=== PATIENT | female | born 1945 | race Caucasian/White ===

== ENCOUNTER 2018-08-17 14:17 | Outpatient (CLI) | payer MEDICARE, BC ==
[2018-08-17 14:55] LABS: Hemoglobin 13.1 g/dL (12.0-16.0); Mean Corpuscular HGB CONC 32.6 g/dL (32.0-36.0); Mean Corpuscular Hemoglobin 28.6 pg (27.0-31.0); Mean Corpuscular Volume 87.9 fL (78.0-98.0); Mean Platelet Volume 6.6 fL (7.4-10.4); Platelet Count 322 thou/uL (130-400); RBC Distribution Width 12.2 % (11.5-14.5); Red Blood Cell (RBC) Count 4.57 mill/uL (4.20-5.40); White Blood Cell (WBC) Count 8.2 thou/uL (4.8-10.8)
[2018-08-17 15:02] LABS: INR-International Normal Ratio 0.9; PTT 23.9 SEC (22.9-36.1); Prothrombin Time 12.1 SEC (12.0-14.7)
[2018-08-17 15:14] LABS: Anion Gap 10 mmol/L (10-20); BUN (Urea Nitrogen) 11 mg/dL (9.8-20.1); Calc. Creatinine Clearance 0 mL/min (70-130); Calcium 9.8 mg/dL (7.8-10.44); Carbon Dioxide 31 mmol/L (23-31); Chloride 102 mmol/L (98-107); Estimated GFR-MDRD 71; Glucose 135 mg/dL (83-110); Potassium 4.1 mmol/L (3.5-5.1); Sodium 139 mmol/L (136-145)
--- NOTE | 2018-08-17 17:01 | EKG ---
Test Reason : Blood Pressure : / mmHG Vent. Rate : 078 BPM Atrial Rate : 078 BPM P-R Int : 142 ms QRS Dur : 130 ms QT Int : 432 ms P-R-T Axes : 044 221 052 degrees QTc Int : 492 ms Normal sinus rhythm Right bundle branch block Abnormal ECG No previous ECGs available Confirmed by DR. Liban TOVAR ([id number]) on 08/17/2018 5:01:17 PM Referred By: EDY Confirmed By:DR. Liban TOVAR
== END 2018-08-17 14:18 | disposition home or self-care (01) ==
LOC: LABBT 14:17
PROVIDERS: ATTEND Neurological Surgery
DX: Z01.818 Encounter for other preprocedural examination (principal); M43.16 Spondylolisthesis, lumbar region
CPT/HCPCS: 80048; 85027; 85610; 85730; 93005; 93010

== ENCOUNTER 2018-08-18 05:36 | Inpatient (IN) | payer MEDICARE, BC ==
--- NOTE | 2018-08-12 12:21 | HP ---
HISTORY OF PRESENT ILLNESS: This is a 73-year-old female who reports to our office for evaluation of left low back and leg pain, worse over the last 2 years. The patient states that distribution of th e pain runs along the left L5 dermatome. It is hard to get out of bed in the morning and she feels w eak. She does feel more comfortable when she has had her left leg flexed as it is very hard for her to roll over in bed at night and it "just hurts." She states that she has tried injections that help ed for some time, but the relief does not last very long. Patient denies any physical therapy and byers s been taking tramadol with some benefit. Patient has weakness in EHL on the left. REVIEW OF SYSTEMS: A 10-point review of systems has been completed and is negative otherwise stated above in the HPI. PAST MEDICAL HISTORY: Arthritis, high cholesterol, chronic pain, and diabetes. PAST SURGICAL HISTORY: Left rotator cuff repair, cholecystectomy. SOCIAL HISTORY: The patient is a nonsmoker, does not drink alcohol or use any other illicit drugs. MEDICATIONS: Gabapentin, Lantus, losartan, Excedrin Extra Strength, citalopram. ALLERGIES: No known drug allergies. PHYSICAL EXAMINATION: CONSTITUTIONAL: Well-appearing, well-nourished, alert. NEUROLOGICAL: Mental status: Oriented to time, place and person. Normal attention span and concent ration. Speech is spontaneous and fluent. Comprehension is intact. Content appropriate. Normal fu nd of knowledge. Cranial nerves: Pupils equal, round, reactive to light. Extraocular movements int act. Hearing is intact. Motor muscle strength is normal in lower extremities. Muscle tone and bulk normal in lower extremities, 5/5 bilateral strength in IP, KE, KF, DF, PF, 4/5 strength in left EHL. L5 radiculopathy on the left. Positive single leg raise on the left. Rotation of bilateral hips n ormal. Nontender to palpation. Deep tendon reflexes 2+ patellar, 2+ ankle bilaterally. Sensory int act to light touch. Gait and station: Sit to stand is slow, stiff gait. RESPIRATIONS: Normal work of breathing in room air. SKIN: No rashes, lesions on exposed skin. PSYCHIATRIC: Normal mood and affect. IMAGING: MRI of the lumbar spine shows significant spondylolisthesis at the last two segments of her spine, L4-L5, L5-S1 shows significant slip and stenosis. ASSESSMENT AND PLAN: Two level spondylolisthesis resulting in severe stenosis with neurogenic claudi cation. PLAN: Dr. Medina has offered a decompression and fusion. We have discussed the risks, benefits, and alternatives, and expected results from surgery. The risks have been discussed included, but wer e not limited to bleeding, infection, CSF leak, nerve damage, screw misplacement, cauda equina injury , paralysis, incontinence, wheelchair dependence, major blood vessel injury, cardiopulmonary complica tions of anesthesia, hypotension complications including blindness and spinal cord dysfunction or paul th. assembly technician risks include the need for further surgery and instrumentation failure. The patient s tates that she understands the risks and is willing to proceed with surgery.
[2018-08-18] MEDS ORDERED: Bupivacaine HCl 0.5%/Epinephrine 1:200,000/PF 30 ml Vial ONE (06:17)
[2018-08-18] MEDS ORDERED: Thrombin 5000 UNITS/5 ML VIAL ONE (06:17)
[2018-08-18] MEDS ORDERED: Sodium Chloride 0.9% 20 ML ONE (06:17)
[2018-08-18] MEDS ORDERED: CEFAZOLIN 2 GM/50 ML BAG ONE (06:22)
[2018-08-18] MEDS ORDERED: Midazolam HCl 2 mg/2 ml Vial ONE (06:33)
[2018-08-18] MEDS ORDERED: Fentanyl 250 MCG/5 ML VIAL ONE (06:34)
[2018-08-18] MEDS ORDERED: Albumin 5% 500 ML ONE (11:02)
[2018-08-18] MEDS ORDERED: Promethazine 25 MG TAB PO PRN (12:00)
[2018-08-18] MEDS ORDERED: Acetaminophen 650 MG Suppository PR PRN (12:00)
[2018-08-18] MEDS ORDERED: Acetaminophen/Codeine 30-300mg Tablet PO PRN ×2 (12:00)
[2018-08-18] MEDS ORDERED: Mag-Al 1200 mg/1200 mg/30 ML UDCUP PO PRN (12:00)
[2018-08-18] MEDS ORDERED: diphenhydrAMINE 50 MG/ML VIAL IVP PRN (12:00)
[2018-08-18] MEDS ORDERED: Ondansetron PF 4 MG/2 ML Vial IVP PRN (12:00)
[2018-08-18] MEDS ORDERED: diphenhydrAMINE 25 MG CAP PO PRN (12:00)
[2018-08-18] MEDS ORDERED: Promethazine HCl 25 MG/ML VIAL IM PRN (12:00)
[2018-08-18] MEDS ORDERED: Milk Of Magnesia 30 ML UDCUP PO PRN (12:00)
[2018-08-18] MEDS ORDERED: Non-Formulary Item 1 EACH (Ondansetron Hcl 4 MG) PO PRN (12:04)
[2018-08-18] MEDS ORDERED: Fentanyl 100 MCG/2 ML VIAL ONE ×3 (12:22→13:41)
--- NOTE | 2018-08-18 12:34 | OP ---
DATE OF PROCEDURE: 08/18/2018 SURGEON: Anshul Medina M.D. RIGHT OF WAY BUYER: Amber Baez PA-C. PREOPERATIVE INDICATION: Treat pain, prevent neurological deterioration. PREOPERATIVE DIAGNOSES: Lumbar spondylolisthesis at L4-L5 and L5-L6 (transitional segment) with spin al stenosis and lateral recess stenosis and neurogenic claudication. POSTOPERATIVE DIAGNOSES: Lumbar spondylolisthesis at L4-L5 and L5-L6 (transitional segment) with spi nal stenosis and lateral recess stenosis and neurogenic claudication. OPERATIVE PROCEDURE: Decompressive laminectomy, medial facetectomy and foraminotomy at L4-L5 and L5- L6; and a transforaminal lumbar interbody arthrodesis L4-L5, L5-L6; placement of intervertebral biome chanical device L4-L5, L5-L6; pedicle screw and lambert instrumentation L4, L5, L6; posterolateral arthro desis, L4, L5, L6; local morselized autograft, morselized Allograft (transitional segment L6 or S0). PREOPERATIVE MEDICATION: Ancef 2 grams IV. DRAIN NUMBER: Zero. DRAIN TYPE: None. OPERATIVE DICTATION: The patient was brought to the operating room. General endotracheal anesthesia was induced. The patient was positioned prone on the Mal frame with appropriate padding for the chest and hips. A lateral fluoro radiograph was used to plan incision. The lumbar skin was sterile ly prepped and draped. We opened with a 10 blade knife and controlled bleeding with bipolar and mono polar cautery. We used monopolar cautery to dissect through subcutaneous tissues to the thoracodorsa l fascia. We incised the fascia in the midline and we reflected the paraspinal muscles off the spino us process and lamina of L4, L5, and L6 (there was a transitional L6 segment or could be called S0). A lateral fluoro radiograph confirmed the levels upon which we were operating. We then carried our dissection over the facet joints at L3-4, L4-5 and L5-L6 to identify the transverse processes at L4-L 5 and L6 bilaterally. We irrigated with bacitracin irrigation. We then used an Adson rongeur and Ke rrison rongeurs to fashion a laminectomy. We removed the entire lamina of L4 and L5 and the superior portion of the lamina of L6. We widened our laminectomy defect by performing medial facetectomies a t L4-L5 and L5-L6. We decompressed the lateral recesses. We performed foraminotomies over the exiti ng nerve roots. At the completion of our decompression, there was no impingement of any neural eleme nt in the canal or out the foramen. We then turned our attention to arthrodesis at the 2 levels with spondylolisthesis was present. We performed a left-sided facetectomy at L4-5 and L5-6 and with the facets removed, we entered the di sk space through the foramen at both of the interspaces. We incised the disk space and removed disk contents using curettes and rongeurs. We bone the rasp into the field and prepared the endplates for grafting. We measured the height of each interspace to 10 mm. Two separate 10 mm PEEK intervertebr al grafts were brought into the field. Our laminectomy bone was cleaned of all its soft tissue attac hments and the bone that we removed was morcellized into demineralized bone matrix to form our fusion substrate. The substrate was packed into our PEEK intervertebral grafts and those were advanced int o the interspaces under radiographic guidance to the appropriate depth. We turned our attention to p edicle screw instrumentation. Using bony anatomic landmarks, palpation of the medial portion of the pedicles, and a lateral fluoro radiograph as a guide, we chose entry points for pedicle screws. We drilled these with a high-speed drill and then used the bone awl to advance through the pedicles into the vertebral bodies. We tappe d each trajectory and then probed it. We found them completely encased in bone. We placed 6.5 mm di ameter screws in the pedicles at L4, L5, and L6 bilaterally. A 360 degree image set was generated wi th our isocentric C-arm. This confirmed adequate position of our instrumentation. We irrigated copi ously with bacitracin irrigation. We decorticated the bone, the transverse processes of L4, L5 and L 6 bilaterally and over the decorticated bone we left more demineralized bone matrix and morselized au tograft as our posterolateral fusion substrate. We then brought rods into the field. We bent the ro ds to engage the pedicle screw heads. We tightened caps over the rods. Using a cgghfk-suaydit-itlql e mechanism, we ensured adequate tightness of the caps just before tightening performed. We added a compressive force across the interspace to keep the interbody graft in place. The osylee-wbtswzi-oig que mechanism ensured adequate tightness of the caps. We then irrigated the center of the wound with bacitracin irrigation. We treated the wound with vancomycin powder. We closed the wound in anatomi c layers. We applied a sterile dressing. This was a clean case and no contamination.
[2018-08-18] MEDS ORDERED: Zolpidem Tartrate 5 MG TAB PO PRN (13:34)
[2018-08-18] MEDS ORDERED: Dextrose 50% Abboject 50 ML SYRINGE SLOW IVP PRN (13:34)
[2018-08-18] MEDS ORDERED: Senokot S 8.6-50 MG TAB PO PRN (13:34)
[2018-08-18] MEDS ORDERED: Bisacodyl 5 MG TAB PO PRN (13:34)
[2018-08-18] MEDS ORDERED: Sodium Chloride 0.65% Nasal 44 ML BOT EA NARE PRN (13:34)
[2018-08-18] MEDS ORDERED: HumaLOG 300 UNITS/3 ML VIAL SC PRN (13:34)
[2018-08-18] MEDS ORDERED: Eucerin (Mineral Oil/Petrolatum,White) 30 gm Jar TOP PRN (13:34)
[2018-08-18] MEDS ORDERED: Loperamide HCl 2 MG CAP PO PRN (13:34)
[2018-08-18] MEDS ORDERED: Dextrose 5% in Water 1,000 ML IV PRN (13:34)
[2018-08-18] MEDS ORDERED: Diabetic Tussin 200 MG/10 ML UDCUP PO PRN (13:34)
[2018-08-18] MEDS ORDERED: hydrALAZINE 20 MG/ML VIAL SLOW IVP PRN (13:34)
[2018-08-18] MEDS ORDERED: Artificial Tears 18 DROP/0.9 ML EA EYE PRN (13:34)
--- NOTE | 2018-08-18 13:37 | PDOC.PN ---
- Subjective Encounter Start Date: 08/18/18 Encounter Start Time: 12:45 -: old records requested/rev pt seen in PACU, pt had lumbar laminectomy currently she does not have more pain, she denies chest pain Patient seen and examined. No new complaints. - Objective Resuscitation Status: Resuscitation Status FULL:Full Resuscitation MAR Reviewed: Yes Vital Signs & Weight: Weight Weight 160 lb Additional Labs: Accuchecks 08/18/18 06:22 POC Glucose 134 H EKG Reviewed by me: Yes (nsr on monitor in pacu) Phys Exam - Physical Examination Constitutional: NAD HEENT: PERRLA, moist MMs, sclera anicteric Neck: no JVD, supple Respiratory: no wheezing, no rales, no rhonchi Cardiovascular: RRR, no significant murmur, no rub Gastrointestinal: soft, non-tender, no distention, positive bowel sounds Musculoskeletal: no edema, pulses present Neurological: non-focal, normal sensation, moves all 4 limbs Psychiatric: normal affect, A&O x 3 Skin: no rash, normal turgor Dx/Plan (1) S/P lumbar laminectomy Code(s): Z98.890 - OTHER SPECIFIED POSTPROCEDURAL STATES Status: Acute Comment: post operative care as per primary team (2) Anxiety and depression Code(s): F41.9 - ANXIETY DISORDER, UNSPECIFIED; F32.9 - MAJOR DEPRESSIVE DISORDER, SINGLE EPISODE, UNSPECIFIED Status: Chronic (3) Diabetes type 2, controlled Code(s): E11.9 - TYPE 2 DIABETES MELLITUS WITHOUT COMPLICATIONS Status: Chronic (4) Dyslipidemia Code(s): E78.5 - HYPERLIPIDEMIA, UNSPECIFIED Status: Chronic (5) GERD (gastroesophageal reflux disease) Code(s): K21.9 - GASTRO-ESOPHAGEAL REFLUX DISEASE WITHOUT ESOPHAGITIS Status: Chronic (6) Hypertension Code(s): I10 - ESSENTIAL (PRIMARY) HYPERTENSION Status: Chronic (7) Lumbar spondylosis Code(s): M47.816 - SPONDYLOSIS W/O MYELOPATHY OR RADICULOPATHY, LUMBAR REGION Status: Chronic (8) Osteoporosis Code(s): M81.0 - AGE-RELATED OSTEOPOROSIS W/O CURRENT PATHOLOGICAL FRACTURE Status: Chronic - Plan cont current plan of care, PT/OT * SCD for DVT prophylaxis * continue protonix for GI prophylaxis * home medication reconciled * continue PT * pain control with pain meds as below * medication reviewed as below * symptomatic treatment * code status- Full code. * hyperglycemia protocol order for diabetes Review of Systems - Review of Systems Eyes: negative: Pain, Vision Change, Conjunctivae Inflammation, Eyelid Inflammation, Redness, Other ENT: negative: Ear Pain, Ear Discharge, Nose Pain, Nose Discharge, Nose Congestion, Mouth Pain, Mouth Swelling, Throat Pain, Throat Swelling, Other Respiratory: negative: Cough, Dry, Shortness of Breath, Hemoptysis, SOB with Excertion, Pleuritic Pain, Sputum, Wheezing Cardiovascular: negative: chest pain, palpitations, orthopnea, paroxysmal nocturnal dyspnea, edema, light headedness, other Gastrointestinal: negative: Nausea, Vomiting, Abdominal Pain, Diarrhea, Constipation, Melena, Hematochezia, Other Genitourinary: negative: Dysuria, Frequency, Incontinence, Hematuria, Retention , Other Musculoskeletal: negative: Neck Pain, Shoulder Pain, Arm Pain, Back Pain, Hand Pain, Leg Pain, Foot Pain, Other Skin: negative: Rash, Lesions, Arsalan, Bruising, Other - Medications/Allergies Allergies/Adverse Reactions: Allergies Allergy/AdvReac Type Severity Reaction Status Date / Time No Known Allergies Allergy Unverified 08/17/18 13:00 Medications: Current Medications Acetaminophen (Tylenol) 650 mg PO Q4H PRN PRN Reason: Headache/Fever or Pain Acetaminophen (Tylenol) 650 mg [place] Q4H PRN PRN Reason: Headache/Fever or Pain Acetaminophen/Codeine Phosphate (Tylenol #3) 1 tab PO Q3H PRN PRN Reason: Mild Pain (1-3) Acetaminophen/Codeine Phosphate (Tylenol #3) 2 tab PO Q3H PRN PRN Reason: Moderate Pain (4-6) Al Hydroxide/Mg Hydroxide (Maalox) 30 ml PO Q4H PRN PRN Reason: Indigestion Artificial Tears (Tears Naturale) 2 drop EA EYE PRN PRN PRN Reason: Dry Eyes Atorvastatin Calcium (Lipitor) 20 mg PO DAILY JOSE Bisacodyl (Dulcolax) 10 mg PO DAILYPRN PRN PRN Reason: Constipation Cefazolin Sodium/Dextrose (Ancef 2 Gm/50 Ml) 2 gm IVPB Q8HR JOSE Citalopram Hydrobromide (Celexa) 40 mg PO DAILY JOSE Dextrose/Water (Dextrose 50%) 25 gm SLOW IVP PRN PRN PRN Reason: Hypoglycemia Diphenhydramine HCl (Benadryl) 25 mg IVP Q6H PRN PRN Reason: Itching Diphenhydramine HCl (Benadryl) 25 mg PO Q6H PRN PRN Reason: Itching Gabapentin (Neurontin) 300 mg PO TID JOSE Glucagon (Glucagon) 1 mg IM PRN PRN PRN Reason: Hypoglycemia Guaifenesin (Robitussin Sf) 200 mg PO Q4H PRN PRN Reason: Cough Hydralazine HCl (Apresoline) 10 mg SLOW IVP Q4H PRN PRN Reason: SBP > 180 and HR < 70 Sodium Chloride (Normal Saline 0.9%) 1,000 mls @ 75 mls/hr IV .[id number] JOSE Insulin Glargine 35 units/ (Miscellaneous Medication) 0.35 mls @ 0 mls/hr SC HS JOSE Dextrose/Water (D5w) 1,000 mls @ 0 mls/hr IV .Q0M PRN PRN Reason: Hypoglycemia Insulin Human Lispro (Humalog) 0 units SC .MODERATE SLIDING SC PRN PRN Reason: Moderate Correctional Scale Insulin Human Lispro (Humalog) 0 units SC .BEDTIME SLIDING SC PRN PRN Reason: Bedtime Correctional Scale Loperamide HCl (Imodium) 2 mg PO PRN PRN PRN Reason: Diarrhea/Loose Stools Losartan Potassium (Cozaar) 12.5 mg PO BID [facility] Magnesium Hydroxide (Milk Of Magnesium) 30 ml PO Q12H PRN PRN Reason: Constipation Mineral Oil/White Petrolatum (Eucerin Cream) 0 gm TOP BIDPRN PRN PRN Reason: Dry Skin Morphine Sulfate (Morphine) 2 mg SLOW IVP Q1H PRN PRN Reason: Moderate Breakthrough Pain Ondansetron HCl (Zofran) 4 mg IVP DAILYPRN PRN PRN Reason: Nausea Pantoprazole Sodium (Protonix) 40 mg PO DAILY JOSE Promethazine HCl (Phenergan) 12.5 mg PO Q4H PRN PRN Reason: Nausea/Vomiting Promethazine HCl (Phenergan) 12.5 mg IM Q4H PRN PRN Reason: Nausea/Vomiting Senna/Docusate Sodium (Senokot S) 2 tab PO BID PRN PRN Reason: Constipation Sodium Chloride (Flush - Normal Saline) 10 ml IVF PRN PRN PRN Reason: Saline Flush Sodium Chloride ([place] Nasal [place] 0.65%) 0 ml EA NARE QIDPRN PRN PRN Reason: Nasal Congestion Tizanidine HCl (Zanaflex) 4 mg PO Q6H PRN PRN Reason: Muscle Spasm Tramadol HCl (Ultram) 50 mg PO PRN PRN PRN Reason: Pain Zolpidem Tartrate (Ambien) 5 mg PO HSPRN PRN PRN Reason: Insomnia
[2018-08-18] MEDS ORDERED: Morphine 4 MG/ML VIAL ONE (13:50)
[2018-08-18] MEDS ORDERED: PROPOFOL 200 MG/20 ML VIAL ONE (14:51)
[2018-08-18] MEDS ORDERED: PHENYLEPHRINE-NS 100 MCG/ML 10 ML SYRINGE ONE (14:51)
[2018-08-18] MEDS ORDERED: Dexamethasone 20 MG/5 ML VIAL ONE (14:51)
[2018-08-18] MEDS ORDERED: Vecuronium 10 MG VIAL ONE (14:51)
[2018-08-18] MEDS ORDERED: Glycopyrrolate 0.2 MG/ML 5 ML SYRINGE ONE (14:51)
[2018-08-18] MEDS ORDERED: Metoclopramide HCl 10 MG/2 ML VIAL ONE (14:51)
[2018-08-18] MEDS ORDERED: Lidocaine 1% PF 5 ML VIAL ONE (14:51)
[2018-08-18] MEDS ORDERED: Morphine 2 MG/ML SYRINGE ONE ×3 (15:39→17:52)
[2018-08-18 19:56] VITALS: BMI 27.6
[2018-08-18] MEDS: Gabapentin 300 MG CAP PO SCH ×2 (20:30→21:32)
[2018-08-18] MEDS: CEFAZOLIN 2 GM/50 ML BAG IVPB SCH ×2 (20:30→21:33)
[2018-08-18] MEDS: Sodium Chloride 0.9% 1,000 ML IV SCH (20:31)
[2018-08-18] MEDS ORDERED: Non-Formulary Item 1 EACH (Insulin Glargine,Hum.Rec.Anlog [Lantus Solostar] 35 UNIT) SC SCH (21:00)
[2018-08-18] MEDS: Losartan 25 MG TAB PO SCH (21:31)
[2018-08-18] MEDS: Insulin Glargine 35 UNITS in Pre-Filled Syringe 1 EACH SC SCH (21:33)
[2018-08-19] MEDS: CEFAZOLIN 2 GM/50 ML BAG IVPB SCH ×3 (05:21→20:59)
[2018-08-19] MEDS: Sodium Chloride 0.9% 1,000 ML IV SCH ×2 (05:21→16:16)
[2018-08-19] MEDS: Morphine 2 MG/ML SYRINGE SLOW IVP PRN ×3 (05:28→13:30)
[2018-08-19] MEDS: Acetaminophen 325 MG TAB PO PRN (05:29)
[2018-08-19] MEDS: traMADol HCl 50 MG TAB PO PRN (05:36)
--- NOTE | 2018-08-19 07:34 | PRG ---
DATE OF SERVICE: 08/19/2018 Ms. Friedman is 1 day out from decompression fusion lumbar spine. She had 2 level spondylolisthesis res ulting in canal stenosis and neurogenic claudication. We decompressed the neural elements and stabil ized her spine. Overnight, the vitals have been stable. She does have a temperature of that maxed a t 100.9 degrees Fahrenheit; however. Her lower extremity examination shows good strength and sensati on throughout. She has anterior thigh pain from positioning on the Mal frame which is normal and will improve over time. She has no drain in place. I do not see a brace in the room and she does n ot remember being fitted for a brace. My plan today is to log roll and sit, she can transfer to her chair this morning. She cannot start p hysical therapy until she is measured and fitted for a brace so that should be done as soon as agustin le. Once the brace is on she will begin her work with physical therapy. If she is a good candidate for inpatient rehabilitation, arrangements can be made for that transfer in the coming days. We will encourage her to use her Voldyne. Will collect a urinalysis.
[2018-08-19 08:59] LABS: Anion Gap 11 mmol/L (10-20); BUN (Urea Nitrogen) 9 mg/dL (9.8-20.1); Calc. Creatinine Clearance 83 mL/min (70-130); Calcium 8.3 mg/dL (7.8-10.44); Carbon Dioxide 26 mmol/L (23-31); Chloride 103 mmol/L (98-107); Estimated GFR-MDRD 79; Glucose 132 mg/dL (83-110); Potassium 3.7 mmol/L (3.5-5.1); Sodium 136 mmol/L (136-145)
[2018-08-19] MEDS ORDERED: Non-Formulary Item 1 EACH (Omeprazole [Omeprazole] 20 MG) PO SCH (09:00)
[2018-08-19 09:05] LABS: #Neutrophils 9.5 thou/uL (1.40-6.50); %Basophils 0.1 % (0.0-1.0); %Eosinophils 0.1 % (0.0-10.0); %Lymphocytes 15.6 % (21.0-51.0); %Monocytes 8.4 % (0.0-10.0); %Neutrophils 75.8 % (42.0-75.0); Hemoglobin 9.9 g/dL (12.0-16.0); Mean Corpuscular Hemoglobin 29.3 pg (27.0-31.0); Mean Corpuscular Volume 88.6 fL (78.0-98.0); Mean Platelet Volume 6.7 fL (7.4-10.4); Platelet Count 238 thou/uL (130-400); Red Blood Cell (RBC) Count 3.38 mill/uL (4.20-5.40); White Blood Cell (WBC) Count 12.5 thou/uL (4.8-10.8)
[2018-08-19] MEDS: Gabapentin 300 MG CAP PO SCH ×3 (09:47→20:58)
[2018-08-19] MEDS: Losartan 25 MG TAB PO SCH ×2 (09:47→20:58)
[2018-08-19] MEDS: Atorvastatin Calcium 20 MG TAB PO SCH (09:47)
[2018-08-19] MEDS: Citalopram 20 MG TAB PO SCH (09:47)
--- NOTE | 2018-08-19 10:09 | PDOC.PN ---
- Subjective Encounter Start Date: 08/19/18 Encounter Start Time: 08:40 -: old records requested/rev today pt has fever, she does not have cough, she reports mild sore throat, she does not have UTI symptoms - Objective Resuscitation Status: Resuscitation Status FULL:Full Resuscitation MAR Reviewed: Yes Vital Signs & Weight: Vital Signs (12 hours) Temp Pulse Resp BP Pulse Ox 08/19/18 08:00 100.2 F H 91 16 117/73 91 L 08/19/18 04:45 100.9 F H 99 16 122/75 93 L 08/19/18 00:33 100.3 F H 90 16 112/73 91 L Weight Weight 166 lb 6 oz I&O: 08/18/18 08/19/18 08/20/18 06:59 06:59 06:59 Intake Total 1200 Output Total 1200 Balance 0 Result Diagrams: 08/19/18 08:19 08/19/18 08:19 Additional Labs: Accuchecks 08/19/18 08/18/18 04:50 20:17 POC Glucose 120 H 211 H Phys Exam - Physical Examination Constitutional: NAD HEENT: PERRLA, moist MMs, sclera anicteric Neck: no JVD, supple Respiratory: no wheezing, no rales, no rhonchi Cardiovascular: RRR, no significant murmur, no rub Gastrointestinal: soft, non-tender, no distention, positive bowel sounds back surgical site with dressing Musculoskeletal: no edema, pulses present Neurological: non-focal, normal sensation, moves all 4 limbs Lymphatic: no nodes Psychiatric: normal affect, A&O x 3 Skin: no rash, normal turgor Dx/Plan (1) S/P lumbar laminectomy Code(s): Z98.890 - OTHER SPECIFIED POSTPROCEDURAL STATES Status: Acute Comment: post operative care as per primary team (2) Anxiety and depression Code(s): F41.9 - ANXIETY DISORDER, UNSPECIFIED; F32.9 - MAJOR DEPRESSIVE DISORDER, SINGLE EPISODE, UNSPECIFIED Status: Chronic (3) Diabetes type 2, controlled Code(s): E11.9 - TYPE 2 DIABETES MELLITUS WITHOUT COMPLICATIONS Status: Chronic (4) Dyslipidemia Code(s): E78.5 - HYPERLIPIDEMIA, UNSPECIFIED Status: Chronic (5) GERD (gastroesophageal reflux disease) Code(s): K21.9 - GASTRO-ESOPHAGEAL REFLUX DISEASE WITHOUT ESOPHAGITIS Status: Chronic (6) Hypertension Code(s): I10 - ESSENTIAL (PRIMARY) HYPERTENSION Status: Chronic (7) Lumbar spondylosis Code(s): M47.816 - SPONDYLOSIS W/O MYELOPATHY OR RADICULOPATHY, LUMBAR REGION Status: Chronic (8) Osteoporosis Code(s): M81.0 - AGE-RELATED OSTEOPOROSIS W/O CURRENT PATHOLOGICAL FRACTURE Status: Chronic - Plan cont current plan of care * CBC, BMP checked * will send urinalysis and culture * monitor for fever * doubt has any infection, will avoid antibiotics and monitor * medication reviewed as below * symptomatic treatment * she may need rehab on discharge * PT/OT as per neurosurgeon. Review of Systems - Review of Systems Constitutional: fever. negative: chills, sweats, weakness, malaise, other ENT: Throat Pain. negative: Ear Pain, Ear Discharge, Nose Pain, Nose Discharge , Nose Congestion, Mouth Pain, Mouth Swelling, Throat Swelling, Other Respiratory: negative: Cough, Dry, Shortness of Breath, Hemoptysis, SOB with Excertion, Pleuritic Pain, Sputum, Wheezing Cardiovascular: negative: chest pain, palpitations, orthopnea, paroxysmal nocturnal dyspnea, edema, light headedness, other Gastrointestinal: negative: Nausea, Vomiting, Abdominal Pain, Diarrhea, Constipation, Melena, Hematochezia, Other Genitourinary: negative: Dysuria, Frequency, Incontinence, Hematuria, Retention , Other Musculoskeletal: Back Pain. negative: Neck Pain, Shoulder Pain, Arm Pain, Hand Pain, Leg Pain, Foot Pain, Other Skin: negative: Rash, Lesions, Arsalan, Bruising, Other - Medications/Allergies Allergies/Adverse Reactions: Allergies Allergy/AdvReac Type Severity Reaction Status Date / Time No Known Allergies Allergy Verified 08/18/18 21:15 Medications: Current Medications Acetaminophen (Tylenol) 650 mg PO Q4H PRN PRN Reason: Headache/Fever or Pain Last Admin: 08/19/18 05:29 Dose: 650 mg Acetaminophen (Tylenol) 650 mg [place] Q4H PRN PRN Reason: Headache/Fever or Pain Acetaminophen/Codeine Phosphate (Tylenol #3) 1 tab PO Q3H PRN PRN Reason: Mild Pain (1-3) Last Admin: 08/18/18 21:32 Dose: 1 tab Acetaminophen/Codeine Phosphate (Tylenol #3) 2 tab PO Q3H PRN PRN Reason: Moderate Pain (4-6) Al Hydroxide/Mg Hydroxide (Maalox) 30 ml PO Q4H PRN PRN Reason: Indigestion Artificial Tears (Tears Naturale) 2 drop EA EYE PRN PRN PRN Reason: Dry Eyes Atorvastatin Calcium (Lipitor) 20 mg PO DAILY [facility] Last Admin: 08/19/18 09:47 Dose: 20 mg Bisacodyl (Dulcolax) 10 mg PO DAILYPRN PRN PRN Reason: Constipation Cefazolin Sodium/Dextrose (Ancef 2 Gm/50 Ml) 2 gm IVPB Q8HR [facility] Last Admin: 08/19/18 05:21 Dose: 2 gm Citalopram Hydrobromide (Celexa) 40 mg PO DAILY [facility] Last Admin: 08/19/18 09:47 Dose: 40 mg Dextrose/Water (Dextrose 50%) 25 gm SLOW IVP PRN PRN PRN Reason: Hypoglycemia Diphenhydramine HCl (Benadryl) 25 mg IVP Q6H PRN PRN Reason: Itching Diphenhydramine HCl (Benadryl) 25 mg PO Q6H PRN PRN Reason: Itching Gabapentin (Neurontin) 300 mg PO TID [facility] Last Admin: 08/19/18 09:47 Dose: 300 mg Glucagon (Glucagon) 1 mg IM PRN PRN PRN Reason: Hypoglycemia Guaifenesin (Robitussin Sf) 200 mg PO Q4H PRN PRN Reason: Cough Hydralazine HCl (Apresoline) 10 mg SLOW IVP Q4H PRN PRN Reason: SBP > 180 and HR < 70 Sodium Chloride (Normal Saline 0.9%) 1,000 mls @ 75 mls/hr IV .[id number] [facility] Last Admin: 08/19/18 05:21 Dose: 1,000 mls Insulin Glargine 35 units/ (Miscellaneous Medication) 0.35 mls @ 0 mls/hr SC [facility] Last Admin: 08/18/18 21:33 Dose: 0.35 mls Dextrose/Water (D5w) 1,000 mls @ 0 mls/hr IV .Q0M PRN PRN Reason: Hypoglycemia Insulin Human Lispro (Humalog) 0 units SC .MODERATE SLIDING SC PRN PRN Reason: Moderate Correctional Scale Insulin Human Lispro (Humalog) 0 units SC .BEDTIME SLIDING SC PRN PRN Reason: Bedtime Correctional Scale Last Admin: 08/18/18 21:33 Dose: 2 unit Loperamide HCl (Imodium) 2 mg PO PRN PRN PRN Reason: Diarrhea/Loose Stools Losartan Potassium (Cozaar) 12.5 mg PO BID [facility] Last Admin: 08/19/18 09:47 Dose: 12.5 mg Magnesium Hydroxide (Milk Of Magnesium) 30 ml PO Q12H PRN PRN Reason: Constipation Mineral Oil/White Petrolatum (Eucerin Cream) 0 gm TOP BIDPRN PRN PRN Reason: Dry Skin Morphine Sulfate (Morphine) 2 mg SLOW IVP Q1H PRN PRN Reason: Moderate Breakthrough Pain Last Admin: 08/19/18 08:26 Dose: 2 mg Ondansetron HCl (Zofran) 4 mg IVP DAILYPRN PRN PRN Reason: Nausea Pantoprazole Sodium (Protonix) 40 mg PO DAILY [facility] Last Admin: 08/19/18 09:47 Dose: 40 mg Promethazine HCl (Phenergan) 12.5 mg PO Q4H PRN PRN Reason: Nausea/Vomiting Promethazine HCl (Phenergan) 12.5 mg IM Q4H PRN PRN Reason: Nausea/Vomiting Senna/Docusate Sodium (Senokot S) 2 tab PO BID PRN PRN Reason: Constipation Sodium Chloride (Flush - Normal Saline) 10 ml IVF PRN PRN PRN Reason: Saline Flush Sodium Chloride ([place] Nasal [place] 0.65%) 0 ml EA NARE QIDPRN PRN PRN Reason: Nasal Congestion Tizanidine HCl (Zanaflex) 4 mg PO Q6H PRN PRN Reason: Muscle Spasm Tramadol HCl (Ultram) 50 mg PO PRN PRN PRN Reason: Pain Last Admin: 08/19/18 05:36 Dose: 50 mg Zolpidem Tartrate (Ambien) 5 mg PO HSPRN PRN PRN Reason: Insomnia
[2018-08-19 14:08] LABS: Bilirubin Negative (Negative); Blood, Urine Negative (Negative); Clarity CLEAR (Clear); Glucose, Urine (Dipstick) Negative (Negative); Leukocyte Negative (Negative); Nitrite Negative (Negative); Protein, Urine (Dipstick) Negative (Neg-Trace); Specific Gravity, Urine 1.015 (1.002-1.036); Urobilinogen 0.2 mg/dL (0.2-1.0); pH, Urine 5.5 (5.0-9.0)
[2018-08-19 14:16] LABS: Bacteria/HPF None Seen HPF (None Seen); Hyaline Casts/LPF 0-3 HYALINE CAST LPF (0-3 Hyaline); Pathc Cast-AUWi Flag 0.72 (0-2.49); RBC/HPF 0-3 HPF (0-3); Squamous Epithelial 0-3 HPF (0-3); WBC/HPF 0-3 HPF (0-3)
[2018-08-19] MEDS: HumaLOG 300 UNITS/3 ML VIAL SC PRN (17:43)
[2018-08-19] MEDS: Insulin Glargine 35 UNITS in Pre-Filled Syringe 1 EACH SC SCH (20:58)
[2018-08-20] MEDS: Sodium Chloride 0.9% 1,000 ML IV SCH ×3 (02:54→21:08)
[2018-08-20] MEDS: CEFAZOLIN 2 GM/50 ML BAG IVPB SCH ×3 (06:01→20:38)
[2018-08-20] MEDS: HumaLOG 300 UNITS/3 ML VIAL SC PRN (06:03)
--- NOTE | 2018-08-20 07:18 | PRG ---
DATE OF SERVICE: 08/20/2018 NEUROSURGERY PROGRESS NOTE SUBJECTIVE: I saw Ms. Friedman on rounds this morning. She did not get her chair-back TLSO brace appli ed until about 4:00 or 5:00 p.m. yesterday, which was too late to begin her physical therapy. She st ayed in bed and sat, but she did not get up with assistance and ambulate. That process should start today. Ms. Friedman had a reasonable night. Her back is sore. Temperature is slightly elevated at 100.2 degre es Fahrenheit. The neurologic function in her lower extremities is stable. The numbness from positi oning on the operating table in her anterior thigh is improving. The plan for today is aggressive physical therapy and a transfer to inpatient rehabilitation if she i s accepted as a candidate. She will need a Lawler catheter removal. We will culture urine one more t paula before it is removed and we will ask her to use a Voldyne incentive spirometer to prevent atelect asis. We will get an ultrasound of her lower extremities.
--- NOTE | 2018-08-20 08:52 | ULT ---
BILATERAL LOWER EXTREMITY VENOUS DUPLEX ULTRASOUND INCLUDING COLOR AND SPECTRAL DOPPLER IMAGING: HISTORY: A 73-year-old female with a history of immobility and fever. Recent back surgery and left leg pain. FINDINGS: Exam performed from groin to ankle including visualized greater saphenous, common femoral, superficia l femoral, profunda femoral, popliteal, trifurcation, and posterior tibial vein regions. There is ph asic flow at all levels with normal compressibility and normal augmentation. No intraluminal thrombu s. IMPRESSION: No evidence for deep venous thrombosis. POS: LEEANN
[2018-08-20] MEDS: Citalopram 20 MG TAB PO SCH (09:20)
[2018-08-20] MEDS: Acetaminophen 325 MG TAB PO PRN (09:21)
[2018-08-20] MEDS: Atorvastatin Calcium 20 MG TAB PO SCH (09:21)
[2018-08-20] MEDS: Gabapentin 300 MG CAP PO SCH ×3 (09:21→20:37)
[2018-08-20] MEDS: Losartan 25 MG TAB PO SCH ×2 (09:21→21:06)
--- NOTE | 2018-08-20 10:05 | PDOC.PN ---
- Subjective Encounter Start Date: 08/20/18 Encounter Start Time: 08:10 Patient seen and examined. No new complaints. No overnight events - Objective Resuscitation Status: Resuscitation Status FULL:Full Resuscitation MAR Reviewed: Yes Vital Signs & Weight: Vital Signs (12 hours) Temp Pulse Resp BP Pulse Ox 08/20/18 07:00 98.7 F 84 16 121/73 08/20/18 04:45 97.8 F 81 18 118/71 94 L 08/20/18 00:44 98.9 F 88 18 130/74 94 L Weight Weight 166 lb 6 oz I&O: 08/19/18 08/20/18 08/21/18 06:59 06:59 06:59 Intake Total 1200 2120 Output Total 1200 2375 Balance 0 -255 Result Diagrams: 08/19/18 08:19 08/19/18 08:19 Additional Labs: Accuchecks 08/20/18 08/19/18 08/19/18 04:48 20:42 16:52 POC Glucose 152 H 122 H 161 H 08/19/18 11:50 POC Glucose 137 H Phys Exam - Physical Examination Constitutional: NAD HEENT: PERRLA, moist MMs, sclera anicteric Neck: no JVD, supple Respiratory: no wheezing, no rales, no rhonchi Cardiovascular: RRR, no significant murmur, no rub Gastrointestinal: soft, non-tender, no distention, positive bowel sounds brace in place Musculoskeletal: no edema, pulses present Neurological: non-focal, normal sensation, moves all 4 limbs Lymphatic: no nodes Psychiatric: normal affect, A&O x 3 Skin: no rash, normal turgor Dx/Plan (1) S/P lumbar laminectomy Code(s): Z98.890 - OTHER SPECIFIED POSTPROCEDURAL STATES Status: Acute Comment: post operative care as per primary team (2) Anxiety and depression Code(s): F41.9 - ANXIETY DISORDER, UNSPECIFIED; F32.9 - MAJOR DEPRESSIVE DISORDER, SINGLE EPISODE, UNSPECIFIED Status: Chronic (3) Diabetes type 2, controlled Code(s): E11.9 - TYPE 2 DIABETES MELLITUS WITHOUT COMPLICATIONS Status: Chronic (4) Dyslipidemia Code(s): E78.5 - HYPERLIPIDEMIA, UNSPECIFIED Status: Chronic (5) GERD (gastroesophageal reflux disease) Code(s): K21.9 - GASTRO-ESOPHAGEAL REFLUX DISEASE WITHOUT ESOPHAGITIS Status: Chronic (6) Hypertension Code(s): I10 - ESSENTIAL (PRIMARY) HYPERTENSION Status: Chronic (7) Lumbar spondylosis Code(s): M47.816 - SPONDYLOSIS W/O MYELOPATHY OR RADICULOPATHY, LUMBAR REGION Status: Chronic (8) Osteoporosis Code(s): M81.0 - AGE-RELATED OSTEOPOROSIS W/O CURRENT PATHOLOGICAL FRACTURE Status: Chronic - Plan cont current plan of care, PT/OT, social service technician * medication reviewed as below * symptomatic treatment * medically stable * no fever, culture negative * may need rehab if qualify * discharge per primary team. Review of Systems - Review of Systems ENT: negative: Ear Pain, Ear Discharge, Nose Pain, Nose Discharge, Nose Congestion, Mouth Pain, Mouth Swelling, Throat Pain, Throat Swelling, Other Respiratory: negative: Cough, Dry, Shortness of Breath, Hemoptysis, SOB with Excertion, Pleuritic Pain, Sputum, Wheezing Cardiovascular: negative: chest pain, palpitations, orthopnea, paroxysmal nocturnal dyspnea, edema, light headedness, other Gastrointestinal: negative: Nausea, Vomiting, Abdominal Pain, Diarrhea, Constipation, Melena, Hematochezia, Other Genitourinary: negative: Dysuria, Frequency, Incontinence, Hematuria, Retention , Other Musculoskeletal: Back Pain. negative: Neck Pain, Shoulder Pain, Arm Pain, Hand Pain, Leg Pain, Foot Pain, Other Skin: negative: Rash, Lesions, Arsalan, Bruising, Other - Medications/Allergies Allergies/Adverse Reactions: Allergies Allergy/AdvReac Type Severity Reaction Status Date / Time No Known Allergies Allergy Verified 08/18/18 21:15 Medications: Current Medications Acetaminophen (Tylenol) 650 mg PO Q4H PRN PRN Reason: Headache/Fever or Pain Last Admin: 08/20/18 09:21 Dose: 650 mg Acetaminophen (Tylenol) 650 mg NM Q4H PRN PRN Reason: Headache/Fever or Pain Acetaminophen/Codeine Phosphate (Tylenol #3) 1 tab PO Q3H PRN PRN Reason: Mild Pain (1-3) Last Admin: 08/18/18 21:32 Dose: 1 tab Acetaminophen/Codeine Phosphate (Tylenol #3) 2 tab PO Q3H PRN PRN Reason: Moderate Pain (4-6) Last Admin: 08/20/18 02:55 Dose: 2 tab Al Hydroxide/Mg Hydroxide (Maalox) 30 ml PO Q4H PRN PRN Reason: Indigestion Artificial Tears (Tears Naturale) 2 drop EA EYE PRN PRN PRN Reason: Dry Eyes Atorvastatin Calcium (Lipitor) 20 mg PO DAILY COUNTS INCLUDE 234 BEDS AT THE [facility] Last Admin: 08/20/18 09:21 Dose: 20 mg Bisacodyl (Dulcolax) 10 mg PO DAILYPRN PRN PRN Reason: Constipation Cefazolin Sodium/Dextrose (Ancef 2 Gm/50 Ml) 2 gm IVPB Q8HR COUNTS INCLUDE 234 BEDS AT THE [facility] Last Admin: 08/20/18 06:01 Dose: 2 gm Citalopram Hydrobromide (Celexa) 40 mg PO DAILY COUNTS INCLUDE 234 BEDS AT THE [facility] Last Admin: 08/20/18 09:20 Dose: 40 mg Dextrose/Water (Dextrose 50%) 25 gm SLOW IVP PRN PRN PRN Reason: Hypoglycemia Diphenhydramine HCl (Benadryl) 25 mg IVP Q6H PRN PRN Reason: Itching Diphenhydramine HCl (Benadryl) 25 mg PO Q6H PRN PRN Reason: Itching Gabapentin (Neurontin) 300 mg PO TID COUNTS INCLUDE 234 BEDS AT THE [facility] Last Admin: 08/20/18 09:21 Dose: 300 mg Glucagon (Glucagon) 1 mg IM PRN PRN PRN Reason: Hypoglycemia Guaifenesin (Robitussin Sf) 200 mg PO Q4H PRN PRN Reason: Cough Hydralazine HCl (Apresoline) 10 mg SLOW IVP Q4H PRN PRN Reason: SBP > 180 and HR < 70 Sodium Chloride (Normal Saline 0.9%) 1,000 mls @ 75 mls/hr IV .[id number] COUNTS INCLUDE 234 BEDS AT THE [facility] Last Admin: 08/20/18 02:54 Dose: 1,000 mls Insulin Glargine 35 units/ (Miscellaneous Medication) 0.35 mls @ 0 mls/hr SC HS COUNTS INCLUDE 234 BEDS AT THE [facility] Last Admin: 08/19/18 20:58 Dose: 0.35 mls Dextrose/Water (D5w) 1,000 mls @ 0 mls/hr IV .Q0M PRN PRN Reason: Hypoglycemia Insulin Human Lispro (Humalog) 0 units SC .MODERATE SLIDING SC PRN PRN Reason: Moderate Correctional Scale Last Admin: 08/20/18 06:03 Dose: 2 units Insulin Human Lispro (Humalog) 0 units SC .BEDTIME SLIDING SC PRN PRN Reason: Bedtime Correctional Scale Last Admin: 08/18/18 21:33 Dose: 2 unit Loperamide HCl (Imodium) 2 mg PO PRN PRN PRN Reason: Diarrhea/Loose Stools Losartan Potassium (Cozaar) 12.5 mg PO BID COUNTS INCLUDE 234 BEDS AT THE [facility] Last Admin: 08/20/18 09:21 Dose: 12.5 mg Magnesium Hydroxide (Milk Of Magnesium) 30 ml PO Q12H PRN PRN Reason: Constipation Mineral Oil/White Petrolatum (Eucerin Cream) 0 gm TOP BIDPRN PRN PRN Reason: Dry Skin Morphine Sulfate (Morphine) 2 mg SLOW IVP Q1H PRN PRN Reason: Moderate Breakthrough Pain Last Admin: 08/19/18 13:30 Dose: 2 mg Ondansetron HCl (Zofran) 4 mg IVP DAILYPRN PRN PRN Reason: Nausea Pantoprazole Sodium (Protonix) 40 mg PO DAILY COUNTS INCLUDE 234 BEDS AT THE [facility] Last Admin: 08/20/18 09:21 Dose: 40 mg Promethazine HCl (Phenergan) 12.5 mg PO Q4H PRN PRN Reason: Nausea/Vomiting Promethazine HCl (Phenergan) 12.5 mg IM Q4H PRN PRN Reason: Nausea/Vomiting Senna/Docusate Sodium (Senokot S) 2 tab PO BID PRN PRN Reason: Constipation Sodium Chloride (Flush - Normal Saline) 10 ml IVF PRN PRN PRN Reason: Saline Flush Sodium Chloride ([place] Nasal [place] 0.65%) 0 ml EA NARE QIDPRN PRN PRN Reason: Nasal Congestion Tizanidine HCl (Zanaflex) 4 mg PO Q6H PRN PRN Reason: Muscle Spasm Tramadol HCl (Ultram) 50 mg PO PRN PRN PRN Reason: Pain Last Admin: 08/19/18 05:36 Dose: 50 mg Zolpidem Tartrate (Ambien) 5 mg PO HSPRN PRN PRN Reason: Insomnia
[2018-08-20] MEDS: traMADol HCl 50 MG TAB PO PRN (15:43)
[2018-08-20] MEDS: Morphine 2 MG/ML SYRINGE SLOW IVP PRN (20:39)
[2018-08-20] MEDS: Insulin Glargine 35 UNITS in Pre-Filled Syringe 1 EACH SC SCH (21:05)
[2018-08-21] MEDS: Morphine 2 MG/ML SYRINGE SLOW IVP PRN (05:57)
[2018-08-21] MEDS: Sodium Chloride 0.9% 1,000 ML IV SCH ×2 (06:11→20:57)
[2018-08-21] MEDS: CEFAZOLIN 2 GM/50 ML BAG IVPB SCH ×3 (06:11→20:57)
--- NOTE | 2018-08-21 07:09 | PRG ---
DATE OF SERVICE: 08/21/2018 Ms. Friedman is 3 days out from decompression fusion lumbar spine yesterday. Yesterday her back was a b it more sore than previous days, but she was more mobile. Physical therapist got her up with a walke r and made it to the hallway. She did not get all the way to the nurses station, but she did make pr ogress from the day before. Ultrasound of the lower extremities was negative. This morning I do not find any new neurological deficits. Our plan is to transfer Ms. Friedman to inpatient rehabilitation a s soon as today.
[2018-08-21] MEDS: Citalopram 20 MG TAB PO SCH (08:05)
[2018-08-21] MEDS: Atorvastatin Calcium 20 MG TAB PO SCH (08:05)
[2018-08-21] MEDS: Losartan 25 MG TAB PO SCH ×2 (08:05→20:55)
[2018-08-21] MEDS: Gabapentin 300 MG CAP PO SCH ×3 (08:05→20:56)
[2018-08-21] MEDS: tiZANidine HCl 4 MG TAB PO PRN ×2 (08:05→21:03)
--- NOTE | 2018-08-21 08:43 | PDOC.PN ---
- Subjective Encounter Start Date: 08/21/18 Encounter Start Time: 08:00 Patient seen and examined. No new complaints. pt had urinary retention, so required lópez, 800 ml drained after lópez - Objective Resuscitation Status: Resuscitation Status FULL:Full Resuscitation MAR Reviewed: Yes Vital Signs & Weight: Vital Signs (12 hours) Temp Pulse Resp BP Pulse Ox 08/21/18 08:00 98.9 F 75 16 137/76 96 08/20/18 20:50 98.1 F 77 16 137/70 95 Weight Weight 166 lb 6 oz I&O: 08/20/18 08/21/18 08/22/18 06:59 06:59 06:59 Intake Total 2120 480 Output Total 2375 1200 Balance -255 -720 Result Diagrams: 08/19/18 08:19 08/19/18 08:19 Additional Labs: Accuchecks 08/21/18 08/20/18 08/20/18 04:51 20:53 16:10 POC Glucose 125 H 101 117 H 08/20/18 11:44 POC Glucose 114 H Phys Exam - Physical Examination Constitutional: NAD HEENT: PERRLA, moist MMs, sclera anicteric Neck: no JVD, supple Respiratory: no wheezing, no rales, no rhonchi Cardiovascular: RRR, no significant murmur, no rub Gastrointestinal: soft, non-tender, no distention, positive bowel sounds Musculoskeletal: no edema, pulses present Neurological: non-focal, normal sensation, moves all 4 limbs Psychiatric: normal affect, A&O x 3 Skin: no rash, normal turgor Dx/Plan (1) S/P lumbar laminectomy Code(s): Z98.890 - OTHER SPECIFIED POSTPROCEDURAL STATES Status: Acute Comment: post operative care as per primary team (2) Anxiety and depression Code(s): F41.9 - ANXIETY DISORDER, UNSPECIFIED; F32.9 - MAJOR DEPRESSIVE DISORDER, SINGLE EPISODE, UNSPECIFIED Status: Chronic (3) Diabetes type 2, controlled Code(s): E11.9 - TYPE 2 DIABETES MELLITUS WITHOUT COMPLICATIONS Status: Chronic (4) Dyslipidemia Code(s): E78.5 - HYPERLIPIDEMIA, UNSPECIFIED Status: Chronic (5) GERD (gastroesophageal reflux disease) Code(s): K21.9 - GASTRO-ESOPHAGEAL REFLUX DISEASE WITHOUT ESOPHAGITIS Status: Chronic (6) Hypertension Code(s): I10 - ESSENTIAL (PRIMARY) HYPERTENSION Status: Chronic (7) Lumbar spondylosis Code(s): M47.816 - SPONDYLOSIS W/O MYELOPATHY OR RADICULOPATHY, LUMBAR REGION Status: Chronic (8) Osteoporosis Code(s): M81.0 - AGE-RELATED OSTEOPOROSIS W/O CURRENT PATHOLOGICAL FRACTURE Status: Chronic - Plan cont current plan of care, PT/OT, social worker health services * leave lópez in on discharge and consider voiding trial in 1 week * medication reviewed as below * symptomatic treatment * once rehab arranged, medically stable for discharge. Review of Systems - Review of Systems ENT: negative: Ear Pain, Ear Discharge, Nose Pain, Nose Discharge, Nose Congestion, Mouth Pain, Mouth Swelling, Throat Pain, Throat Swelling, Other Respiratory: negative: Cough, Dry, Shortness of Breath, Hemoptysis, SOB with Excertion, Pleuritic Pain, Sputum, Wheezing Cardiovascular: negative: chest pain, palpitations, orthopnea, paroxysmal nocturnal dyspnea, edema, light headedness, other Gastrointestinal: negative: Nausea, Vomiting, Abdominal Pain, Diarrhea, Constipation, Melena, Hematochezia, Other Genitourinary: Retention. negative: Dysuria, Frequency, Incontinence, Hematuria , Other Musculoskeletal: negative: Neck Pain, Shoulder Pain, Arm Pain, Back Pain, Hand Pain, Leg Pain, Foot Pain, Other Skin: negative: Rash, Lesions, Arsalan, Bruising, Other - Medications/Allergies Allergies/Adverse Reactions: Allergies Allergy/AdvReac Type Severity Reaction Status Date / Time No Known Allergies Allergy Verified 08/18/18 21:15 Medications: Current Medications Acetaminophen (Tylenol) 650 mg PO Q4H PRN PRN Reason: Headache/Fever or Pain Last Admin: 08/20/18 09:21 Dose: 650 mg Acetaminophen (Tylenol) 650 mg NC Q4H PRN PRN Reason: Headache/Fever or Pain Acetaminophen/Codeine Phosphate (Tylenol #3) 1 tab PO Q3H PRN PRN Reason: Mild Pain (1-3) Last Admin: 08/18/18 21:32 Dose: 1 tab Acetaminophen/Codeine Phosphate (Tylenol #3) 2 tab PO Q3H PRN PRN Reason: Moderate Pain (4-6) Last Admin: 08/20/18 02:55 Dose: 2 tab Al Hydroxide/Mg Hydroxide (Maalox) 30 ml PO Q4H PRN PRN Reason: Indigestion Artificial Tears (Tears Naturale) 2 drop EA EYE PRN PRN PRN Reason: Dry Eyes Atorvastatin Calcium (Lipitor) 20 mg PO DAILY [facility] Last Admin: 08/21/18 08:05 Dose: 20 mg Bisacodyl (Dulcolax) 10 mg PO DAILYPRN PRN PRN Reason: Constipation Cefazolin Sodium/Dextrose (Ancef 2 Gm/50 Ml) 2 gm IVPB Q8HR [facility] Last Admin: 08/21/18 06:11 Dose: 2 gm Citalopram Hydrobromide (Celexa) 40 mg PO DAILY [facility] Last Admin: 08/21/18 08:05 Dose: 40 mg Dextrose/Water (Dextrose 50%) 25 gm SLOW IVP PRN PRN PRN Reason: Hypoglycemia Diphenhydramine HCl (Benadryl) 25 mg IVP Q6H PRN PRN Reason: Itching Diphenhydramine HCl (Benadryl) 25 mg PO Q6H PRN PRN Reason: Itching Gabapentin (Neurontin) 300 mg PO TID [facility] Last Admin: 08/21/18 08:05 Dose: 300 mg Glucagon (Glucagon) 1 mg IM PRN PRN PRN Reason: Hypoglycemia Guaifenesin (Robitussin Sf) 200 mg PO Q4H PRN PRN Reason: Cough Hydralazine HCl (Apresoline) 10 mg SLOW IVP Q4H PRN PRN Reason: SBP > 180 and HR < 70 Sodium Chloride (Normal Saline 0.9%) 1,000 mls @ 75 mls/hr IV .[id number] [facility] Last Admin: 08/21/18 06:11 Dose: 1,000 mls Insulin Glargine 35 units/ (Miscellaneous Medication) 0.35 mls @ 0 mls/hr SC HS [facility] Last Admin: 08/20/18 21:05 Dose: Not Given Dextrose/Water (D5w) 1,000 mls @ 0 mls/hr IV .Q0M PRN PRN Reason: Hypoglycemia Insulin Human Lispro (Humalog) 0 units SC .MODERATE SLIDING SC PRN PRN Reason: Moderate Correctional Scale Last Admin: 08/20/18 06:03 Dose: 2 units Insulin Human Lispro (Humalog) 0 units SC .BEDTIME SLIDING SC PRN PRN Reason: Bedtime Correctional Scale Last Admin: 08/18/18 21:33 Dose: 2 unit Loperamide HCl (Imodium) 2 mg PO PRN PRN PRN Reason: Diarrhea/Loose Stools Losartan Potassium (Cozaar) 12.5 mg PO BID [facility] Last Admin: 08/21/18 08:05 Dose: 12.5 mg Magnesium Hydroxide (Milk Of Magnesium) 30 ml PO Q12H PRN PRN Reason: Constipation Mineral Oil/White Petrolatum (Eucerin Cream) 0 gm TOP BIDPRN PRN PRN Reason: Dry Skin Morphine Sulfate (Morphine) 2 mg SLOW IVP Q1H PRN PRN Reason: Moderate Breakthrough Pain Last Admin: 08/21/18 05:57 Dose: 2 mg Ondansetron HCl (Zofran) 4 mg IVP DAILYPRN PRN PRN Reason: Nausea Pantoprazole Sodium (Protonix) 40 mg PO DAILY [facility] Last Admin: 08/21/18 08:05 Dose: 40 mg Promethazine HCl (Phenergan) 12.5 mg PO Q4H PRN PRN Reason: Nausea/Vomiting Promethazine HCl (Phenergan) 12.5 mg IM Q4H PRN PRN Reason: Nausea/Vomiting Senna/Docusate Sodium (Senokot S) 2 tab PO BID PRN PRN Reason: Constipation Sodium Chloride (Flush - Normal Saline) 10 ml IVF PRN PRN PRN Reason: Saline Flush Sodium Chloride ([place] Nasal [place] 0.65%) 0 ml EA NARE QIDPRN PRN PRN Reason: Nasal Congestion Tizanidine HCl (Zanaflex) 4 mg PO Q6H PRN PRN Reason: Muscle Spasm Last Admin: 08/21/18 08:05 Dose: 4 mg Tramadol HCl (Ultram) 50 mg PO PRN PRN PRN Reason: Pain Last Admin: 08/20/18 15:43 Dose: 50 mg Zolpidem Tartrate (Ambien) 5 mg PO HSPRN PRN PRN Reason: Insomnia
--- NOTE | 2018-08-21 10:29 | DIS ---
PRIMARY CARE PHYSICIAN: [facility] call admission. DATE OF ADMISSION: 08/18/2018 DATE OF DISCHARGE: 08/21/2018 DISCHARGE DISPOSITION: Inpatient rehabilitation. PRIMARY DISCHARGE DIAGNOSES: 1. Status post lumbar laminectomy. 2. Acute urinary retention. SECONDARY DISCHARGE DIAGNOSES: Anxiety and depression, diabetes type 2, dyslipidemia, lumbar spondyl osis, gastroesophageal reflux disease, osteoporosis. PRIMARY PROCEDURE/OPERATION: Dr. Medina did decompressive laminectomy, medial facetectomy and for aminectomy at L4-L5 and L5-L6. RADIOLOGICAL INVESTIGATION: Ultrasound of lower extremity negative for DVT. SIGNIFICANT LABORATORY DATA: WBC 12.5, hemoglobin 9.9, platelet 238. Sodium 136, potassium 3.7, BUN 9, creatinine 0.72, calcium 8.3. Urinalysis normal. Urine culture negative. DISCHARGE MEDICATIONS: Zofran 4 mg q.6 hourly p.r.n., alendronate with vitamin D3 one tablet q.7 day s, Lipitor 20 mg p.o. daily, Celexa 40 mg p.o. daily, gabapentin 300 mg p.o. t.i.d., Lantus 35 units subcu in the evening, losartan 12.5 mg p.o. b.i.d., omeprazole 20 mg p.o. daily, tramadol 50 mg q.6 h ourly p.r.n. CONTRAINDICATIONS: None. CODE STATUS: FULL CODE. INPATIENT CONSULTANTS: Dr. Medina was primary while in hospital. Sound Team was consulted for wi dicaz comanagement. TEST RESULTS PENDING ON DISCHARGE: None. ALLERGIES: No known drug allergy. DISCHARGE PLAN: Post hospital, the patient is planned for discharge to Rehab for more PT, OT. HOSPITAL COURSE: A 73-year-old female who was electively admitted by Dr. Medina. The patient has a history of lumbar spondylolisthesis. The patient underwent a decompressive laminectomy, medial fa cetectomy and foraminectomy at L4-L5 and L5-L6 level. Postoperatively, the patient was admitted to m edical floor. She was treated with PT, OT and pain control while in hospital. She had acute urinary retention that is why she required Lawler catheter. She will need a voiding trial in 1 week. She wi ll be discharged with Lawler catheter in. She had fever while in hospital, but that was subsided with out any antibiotic therapy. The patient is seen and examined at bedside today. Please see my progress note from today for furthe r details. If the patient has rehabilitation bed available, then she is medically stable for dischar ge with the above-mentioned medications. Pain medication will be deferred to primary team.
[2018-08-21] MEDS: Polyethylene Glycol 3350 17 GM Packet PO SCH (12:52)
[2018-08-21] MEDS: Insulin Glargine 35 UNITS in Pre-Filled Syringe 1 EACH SC SCH (20:52)
[2018-08-22] MEDS: CEFAZOLIN 2 GM/50 ML BAG IVPB SCH (05:07)
[2018-08-22] MEDS: tiZANidine HCl 4 MG TAB PO PRN ×2 (05:12→10:52)
[2018-08-22 07:12] VITALS: BP 120/70; TEMP 98.4
[2018-08-22] MEDS: Polyethylene Glycol 3350 17 GM Packet PO SCH (08:16)
[2018-08-22] MEDS: Losartan 25 MG TAB PO SCH (08:16)
[2018-08-22] MEDS: Citalopram 20 MG TAB PO SCH (08:17)
[2018-08-22] MEDS: Atorvastatin Calcium 20 MG TAB PO SCH (08:17)
[2018-08-22] MEDS: Gabapentin 300 MG CAP PO SCH (08:17)
--- NOTE | 2018-08-22 08:34 | DIS ---
Ms. Friedman is a 73-year-old woman, who was admitted to [facility] on 08/18/[address] Halle rose in the postoperative setting. ADMISSION DIAGNOSES: Status post laminectomy and transforaminal lumbar interbody fusion. DISCHARGE DIAGNOSES: Status post laminectomy and transforaminal lumbar interbody fusion. She was ultimately discharged on 08/22/2018 in stable condition. She had some early difficulties wit h pain control and mobilization for this purpose. Rehab was consulted. There were also consultation s with PT and OT. Disposition was to rehabilitation with outpatient followup planned in 2 weeks.
--- NOTE | 2018-08-22 09:34 | PDOC.PN ---
- Subjective Encounter Start Date: 08/22/18 Encounter Start Time: 08:20 Patient seen and examined. No new complaints. No overnight events - Objective Resuscitation Status: Resuscitation Status FULL:Full Resuscitation MAR Reviewed: Yes Vital Signs & Weight: Vital Signs (12 hours) Temp Pulse Resp BP Pulse Ox 08/22/18 07:11 98.4 F 63 18 120/70 98 Weight Weight 166 lb 6 oz I&O: 08/21/18 08/22/18 08/23/18 06:59 06:59 06:59 Intake Total 480 1490 Output Total 1200 2200 Balance -720 -710 Result Diagrams: 08/19/18 08:19 08/19/18 08:19 Additional Labs: Accuchecks 08/22/18 08/21/18 08/21/18 04:01 19:14 16:10 POC Glucose 138 H 114 H 148 H 08/21/18 11:09 POC Glucose 123 H Phys Exam - Physical Examination Constitutional: NAD HEENT: PERRLA, moist MMs, sclera anicteric Neck: no JVD, supple Respiratory: no wheezing, no rales, no rhonchi Cardiovascular: RRR, no significant murmur, no rub Gastrointestinal: soft, non-tender, no distention Musculoskeletal: no edema, pulses present Neurological: non-focal, normal sensation, moves all 4 limbs Psychiatric: normal affect, A&O x 3 Skin: no rash, normal turgor Dx/Plan (1) S/P lumbar laminectomy Code(s): Z98.890 - OTHER SPECIFIED POSTPROCEDURAL STATES Status: Acute Comment: post operative care as per primary team (2) Anxiety and depression Code(s): F41.9 - ANXIETY DISORDER, UNSPECIFIED; F32.9 - MAJOR DEPRESSIVE DISORDER, SINGLE EPISODE, UNSPECIFIED Status: Chronic (3) Diabetes type 2, controlled Code(s): E11.9 - TYPE 2 DIABETES MELLITUS WITHOUT COMPLICATIONS Status: Chronic (4) Dyslipidemia Code(s): E78.5 - HYPERLIPIDEMIA, UNSPECIFIED Status: Chronic (5) GERD (gastroesophageal reflux disease) Code(s): K21.9 - GASTRO-ESOPHAGEAL REFLUX DISEASE WITHOUT ESOPHAGITIS Status: Chronic (6) Hypertension Code(s): I10 - ESSENTIAL (PRIMARY) HYPERTENSION Status: Chronic (7) Lumbar spondylosis Code(s): M47.816 - SPONDYLOSIS W/O MYELOPATHY OR RADICULOPATHY, LUMBAR REGION Status: Chronic (8) Osteoporosis Code(s): M81.0 - AGE-RELATED OSTEOPOROSIS W/O CURRENT PATHOLOGICAL FRACTURE Status: Chronic - Plan cont current plan of care, PT/OT, social sciences lecturer * medication reviewed as below * symptomatic treatment * stable for discharge today. Review of Systems - Review of Systems Eyes: negative: Pain, Vision Change, Conjunctivae Inflammation, Eyelid Inflammation, Redness, Other ENT: negative: Ear Pain, Ear Discharge, Nose Pain, Nose Discharge, Nose Congestion, Mouth Pain, Mouth Swelling, Throat Pain, Throat Swelling, Other Respiratory: negative: Cough, Dry, Shortness of Breath, Hemoptysis, SOB with Excertion, Pleuritic Pain, Sputum, Wheezing Cardiovascular: negative: chest pain, palpitations, orthopnea, paroxysmal nocturnal dyspnea, edema, light headedness, other Gastrointestinal: negative: Nausea, Vomiting, Abdominal Pain, Diarrhea, Constipation, Melena, Hematochezia, Other Genitourinary: negative: Dysuria, Frequency, Incontinence, Hematuria, Retention , Other Musculoskeletal: negative: Neck Pain, Shoulder Pain, Arm Pain, Back Pain, Hand Pain, Leg Pain, Foot Pain, Other - Medications/Allergies Allergies/Adverse Reactions: Allergies Allergy/AdvReac Type Severity Reaction Status Date / Time No Known Allergies Allergy Verified 08/18/18 21:15 Medications: Current Medications Acetaminophen (Tylenol) 650 mg PO Q4H PRN PRN Reason: Headache/Fever or Pain Last Admin: 08/20/18 09:21 Dose: 650 mg Acetaminophen (Tylenol) 650 mg IA Q4H PRN PRN Reason: Headache/Fever or Pain Acetaminophen/Codeine Phosphate (Tylenol #3) 1 tab PO Q3H PRN PRN Reason: Mild Pain (1-3) Last Admin: 08/18/18 21:32 Dose: 1 tab Acetaminophen/Codeine Phosphate (Tylenol #3) 2 tab PO Q3H PRN PRN Reason: Moderate Pain (4-6) Last Admin: 08/20/18 02:55 Dose: 2 tab Al Hydroxide/Mg Hydroxide (Maalox) 30 ml PO Q4H PRN PRN Reason: Indigestion Artificial Tears (Tears Naturale) 2 drop EA EYE PRN PRN PRN Reason: Dry Eyes Atorvastatin Calcium (Lipitor) 20 mg PO DAILY JOSE Last Admin: 08/22/18 08:17 Dose: 20 mg Bisacodyl (Dulcolax) 10 mg PO DAILYPRN PRN PRN Reason: Constipation Cefazolin Sodium/Dextrose (Ancef 2 Gm/50 Ml) 2 gm IVPB Q8HR [facility] Last Admin: 08/22/18 05:07 Dose: 2 gm Citalopram Hydrobromide (Celexa) 40 mg PO DAILY [facility] Last Admin: 08/22/18 08:17 Dose: 40 mg Dextrose/Water (Dextrose 50%) 25 gm SLOW IVP PRN PRN PRN Reason: Hypoglycemia Diphenhydramine HCl (Benadryl) 25 mg IVP Q6H PRN PRN Reason: Itching Diphenhydramine HCl (Benadryl) 25 mg PO Q6H PRN PRN Reason: Itching Gabapentin (Neurontin) 300 mg PO TID [facility] Last Admin: 08/22/18 08:17 Dose: 300 mg Glucagon (Glucagon) 1 mg IM PRN PRN PRN Reason: Hypoglycemia Guaifenesin (Robitussin Sf) 200 mg PO Q4H PRN PRN Reason: Cough Hydralazine HCl (Apresoline) 10 mg SLOW IVP Q4H PRN PRN Reason: SBP > 180 and HR < 70 Sodium Chloride (Normal Saline 0.9%) 1,000 mls @ 75 mls/hr IV .[id number] [facility] Last Admin: 08/21/18 20:57 Dose: 1,000 mls Insulin Glargine 35 units/ (Miscellaneous Medication) 0.35 mls @ 0 mls/hr [facility] Last Admin: 08/21/18 20:52 Dose: Not Given Dextrose/Water (D5w) 1,000 mls @ 0 mls/hr IV .Q0M PRN PRN Reason: Hypoglycemia Insulin Human Lispro (Humalog) 0 units SC .MODERATE SLIDING SC PRN PRN Reason: Moderate Correctional Scale Last Admin: 08/20/18 06:03 Dose: 2 units Insulin Human Lispro (Humalog) 0 units SC .BEDTIME SLIDING SC PRN PRN Reason: Bedtime Correctional Scale Last Admin: 08/18/18 21:33 Dose: 2 unit Loperamide HCl (Imodium) 2 mg PO PRN PRN PRN Reason: Diarrhea/Loose Stools Losartan Potassium (Cozaar) 12.5 mg PO BID [facility] Last Admin: 08/22/18 08:16 Dose: 12.5 mg Magnesium Hydroxide (Milk Of Magnesium) 30 ml PO Q12H PRN PRN Reason: Constipation Mineral Oil/White Petrolatum (Eucerin Cream) 0 gm TOP BIDPRN PRN PRN Reason: Dry Skin Morphine Sulfate (Morphine) 2 mg SLOW IVP Q1H PRN PRN Reason: Moderate Breakthrough Pain Last Admin: 08/21/18 05:57 Dose: 2 mg Ondansetron HCl (Zofran) 4 mg IVP DAILYPRN PRN PRN Reason: Nausea Pantoprazole Sodium (Protonix) 40 mg PO DAILY [facility] Last Admin: 08/22/18 08:16 Dose: 40 mg Polyethylene Glycol (Miralax) 17 gm PO DAILY [facility] Last Admin: 08/22/18 08:16 Dose: 17 gm Promethazine HCl (Phenergan) 12.5 mg PO Q4H PRN PRN Reason: Nausea/Vomiting Promethazine HCl (Phenergan) 12.5 mg IM Q4H PRN PRN Reason: Nausea/Vomiting Senna/Docusate Sodium (Senokot S) 2 tab PO BID PRN PRN Reason: Constipation Sodium Chloride (Flush - Normal Saline) 10 ml IVF PRN PRN PRN Reason: Saline Flush Sodium Chloride ([facility] Nasal [place] 0.65%) 0 ml EA NARE QIDPRN PRN PRN Reason: Nasal Congestion Tizanidine HCl (Zanaflex) 4 mg PO Q6H PRN PRN Reason: Muscle Spasm Last Admin: 08/22/18 05:12 Dose: 4 mg Tramadol HCl (Ultram) 50 mg PO PRN PRN PRN Reason: Pain Last Admin: 08/20/18 15:43 Dose: 50 mg Zolpidem Tartrate (Ambien) 5 mg PO HSPRN PRN PRN Reason: Insomnia
[2018-08-22] MEDS: Sodium Chloride 0.9% 1,000 ML IV SCH (10:48)
== END 2018-08-22 13:15 | DRG 455 ==
LOC: SURG A 05:36 → EDSTATUS 10:13 → T4-A 19:05
PROVIDERS: ADMIT Neurological Surgery; ATTEND Neurological Surgery
PROC: 0SG10AJ Fusion of 2 or more Lumbar Vertebral Joints with Interbody Fusion Device, Posterior Approach, Anterior Column, Open Approach (ICD-10-PCS; principal; 2018-08-18)
PROC: 0SG1071 Fusion of 2 or more Lumbar Vertebral Joints with Autologous Tissue Substitute, Posterior Approach, Posterior Column, Open Approach (ICD-10-PCS; 2018-08-18)
PROC: 01NB0ZZ Release Lumbar Nerve, Open Approach (ICD-10-PCS; 2018-08-18)
DX: M48.062 Spinal stenosis, lumbar region with neurogenic claudication (principal); M43.16 Spondylolisthesis, lumbar region; M19.90 Unspecified osteoarthritis, unspecified site; E11.65 Type 2 diabetes mellitus with hyperglycemia; Z79.899 Other long term (current) drug therapy; R33.9 Retention of urine, unspecified; E78.5 Hyperlipidemia, unspecified; F41.9 Anxiety disorder, unspecified; F32.9 Major depressive disorder, single episode, unspecified; D21.9 Benign neoplasm of connective and other soft tissue, unspecified; M81.0 Age-related osteoporosis without current pathological fracture; I10 Essential (primary) hypertension; M47.816 Spondylosis without myelopathy or radiculopathy, lumbar region
CPT/HCPCS: 36415; 36416; 76001; 80048; 81001; 85025; 85027; 85610; 85730; 87086; 93005; 93010; 93970; C1713; C1768; G8978-GP-CK; G8979-GP-CI; J0670; J1100; J2001; J2250; J2270; J2704; J2765; J3010; J3370; J3490; L0639; P9045

== ENCOUNTER 2022-07-23 14:08 | Outpatient (CLI) | payer MEDICARE, BC ==
[2022-07-23 15:18] LABS: Hemoglobin 12.3 g/dL (12.0-15.5); Mean Corpuscular HGB CONC 33.8 g/dL (32.0-36.0); Mean Corpuscular Hemoglobin 29.9 pg (27.0-33.0); Mean Corpuscular Volume 88.3 fl (81.6-98.3); Platelet Count 316 10x3/uL (150-450); RBC Distribution Width 12.3 % (11.5-14.5); Red Blood Cell (RBC) Count 4.12 10x6/uL (3.90-5.03); White Blood Cell (WBC) Count 6.1 10x3/uL (3.5-10.5)
[2022-07-23 15:26] LABS: INR-International Normal Ratio 0.9; PTT 24.2 sec (22.0-33.0); Prothrombin Time 10.2 sec (9.5-12.1)
[2022-07-23 15:34] LABS: Anion Gap 15 mmol/L (10-20); BUN (Urea Nitrogen) 14 mg/dL (9.8-20.1); Calc. Creatinine Clearance 0 mL/min (70-130); Calcium 9.7 mg/dL (7.8-10.44); Carbon Dioxide 27 mmol/L (23-31); Chloride 105 mmol/L (98-107); Estimated GFR 76; Glucose 98 mg/dL (83-110); Potassium 4.3 mmol/L (3.5-5.1); Sodium 143 mmol/L (136-145)
== END 2022-07-23 14:09 | disposition home or self-care (01) ==
LOC: LABBT 14:08
PROVIDERS: ATTEND Neurological Surgery
DX: Z01.818 Encounter for other preprocedural examination (principal); M48.061 Spinal stenosis, lumbar region without neurogenic claudication; Z20.822 Contact with and (suspected) exposure to COVID-19
CPT/HCPCS: 80048; 85027; 85610; 85730; 87811; 93005; 93010

== ENCOUNTER 2022-07-26 05:34 | Observation (INO) | payer MEDICARE, BC ==
[2022-07-24 14:41] VITALS: BMI 25.0
[2022-07-26] MEDS ORDERED: Lidocaine 1% MPF 2 ML VIAL ONE (05:54)
[2022-07-26] MEDS ORDERED: Thrombin 5000 UNITS/5 ML VIAL ONE (06:10)
[2022-07-26] MEDS ORDERED: Neomycin-Polymyxin 1 ML AMP ONE (06:10)
[2022-07-26] MEDS ORDERED: EPINEPHrine 1 MG/ML AMP ONE (06:10)
[2022-07-26] MEDS ORDERED: Bupivacaine PF 0.5% 30 ML VIAL ONE (06:10)
[2022-07-26] MEDS ORDERED: Ketamine 50 MG/ML (10ML VIAL) ONE (06:37)
[2022-07-26] MEDS ORDERED: Famotidine/PF 20 mg/2ml Vial ONE (06:37)
[2022-07-26] MEDS ORDERED: fentaNYL Citrate/PF 100 MCG/2 ML SYRINGE ONE (06:37)
[2022-07-26] MEDS ORDERED: CEFAZOLIN 2 GM VIAL ONE (06:45)
[2022-07-26] MEDS ORDERED: Sodium Chloride 0.9% 100 ML ONE (06:45)
[2022-07-26] MEDS ORDERED: ePHEDrine 50 MG/ML VIAL ONE (07:01)
[2022-07-26] MEDS ORDERED: Rocuronium Bromide 10 MG/ML (10ML VIAL) ONE (07:01)
[2022-07-26] MEDS ORDERED: Ondansetron PF 4 MG/2 ML Vial ONE (07:01)
[2022-07-26] MEDS ORDERED: PROPOFOL 200 MG/20 ML VIAL ONE (07:01)
[2022-07-26] MEDS ORDERED: Dexamethasone 20 MG/5 ML VIAL ONE (07:01)
[2022-07-26] MEDS ORDERED: Glycopyrrolate 0.2 MG/ML 5 ML SYRINGE ONE (07:01)
[2022-07-26] MEDS ORDERED: NEOSTIGMINE 3 MG/3 ML SYR 3 MG/3 ML SYRINGE ONE (07:01)
[2022-07-26] MEDS ORDERED: Bacitracin Zinc Ointment 30 gm TUBE ONE (10:32)
[2022-07-26] MEDS ORDERED: Ondansetron HCl/PF 4 MG/2 ML Vial IVP PRN (10:34)
[2022-07-26] MEDS ORDERED: HYDROmorphone 2 MG/ML VIAL SLOW IVP PRN (10:34)
[2022-07-26] MEDS ORDERED: Promethazine HCl 25 MG/ML VIAL IVPB PRN (10:34)
[2022-07-26] MEDS ORDERED: Promethazine HCl 25 MG/ML VIAL IM PRN (10:34)
[2022-07-26] MEDS ORDERED: Meperidine HCl/PF 25 MG/ML VIAL SLOW IVP PRN (10:34)
[2022-07-26] MEDS ORDERED: Morphine 2 MG/ML VIAL SLOW IVP PRN (10:40)
[2022-07-26] MEDS ORDERED: HYDROcodone/Acetaminophen 7.5/325 mg Tablet PO PRN (10:40)
[2022-07-26] MEDS ORDERED: Mag-Al 1200 mg/1200 mg/30 ML UDCUP PO PRN (10:40)
[2022-07-26] MEDS ORDERED: Acetaminophen/Codeine 30-300mg Tablet PO PRN (10:40)
[2022-07-26] MEDS ORDERED: diphenhydrAMINE 50 MG/ML VIAL IVP PRN (10:40)
[2022-07-26] MEDS ORDERED: Bisacodyl 10 MG SUPP PR PRN (10:40)
[2022-07-26] MEDS ORDERED: Prochlorperazine 10 MG/2 ML VIAL IM PRN (10:40)
[2022-07-26] MEDS ORDERED: Ondansetron PF 4 MG/2 ML Vial IVP PRN (10:40)
[2022-07-26] MEDS: HYDROcodone/Acetaminophen 10/325 mg Tablet PO PRN ×2 (16:30→21:17)
[2022-07-26] MEDS: Gabapentin 300 MG CAP PO SCH ×2 (16:30→21:16)
[2022-07-26] MEDS: CEFAZOLIN 2 GM in Sodium Chloride 0.9% 100 ML IVPB SCH (16:50)
[2022-07-26] MEDS: Sodium Chloride 0.9% 1,000 ML IV SCH (16:50)
[2022-07-26] MEDS: Losartan 25 MG TAB PO SCH (21:16)
[2022-07-26] MEDS: Atorvastatin Calcium 20 MG TAB PO SCH (21:16)
[2022-07-27] MEDS: CEFAZOLIN 2 GM in Sodium Chloride 0.9% 100 ML IVPB SCH
[2022-07-27] MEDS: Sodium Chloride 0.9% 1,000 ML IV SCH ×2 (00:05→16:05)
[2022-07-27 05:58] LABS: #Eosinphils 0.1 thou/uL (0.0-0.7); #Lymphocytes 2.8 thou/uL (1.20-3.40); %Basophils 0.3 % (0.0-1.0); %Lymphocytes 28.2 % (21.0-51.0); %Neutrophils 60.5 % (42.0-75.0); Hemoglobin 10.3 g/dL (12.0-16.0); Mean Corpuscular HGB CONC 32.8 g/dL (32.0-36.0); Mean Corpuscular Hemoglobin 30.3 pg (27.0-31.0); Mean Corpuscular Volume 92.5 fL (78.0-98.0); Mean Platelet Volume 6.6 fL (7.4-10.4); Platelet Count 240 thou/uL (130-400); RBC Distribution Width 11.4 % (11.5-14.5); Red Blood Cell (RBC) Count 3.39 mill/uL (4.20-5.40); White Blood Cell (WBC) Count 9.9 thou/uL (4.8-10.8)
[2022-07-27 06:14] LABS: Anion Gap 10 mmol/L (10-20); BUN (Urea Nitrogen) 13 mg/dL (9.8-20.1); Calc. Creatinine Clearance 69 mL/min (70-130); Calcium 8.5 mg/dL (7.8-10.44); Carbon Dioxide 29 mmol/L (23-31); Chloride 106 mmol/L (98-107); Estimated GFR 85; Glucose 118 mg/dL (83-110); Potassium 3.7 mmol/L (3.5-5.1); Sodium 141 mmol/L (136-145)
[2022-07-27] MEDS: HYDROcodone/Acetaminophen 10/325 mg Tablet PO PRN ×3 (06:26→16:07)
[2022-07-27] MEDS: Gabapentin 300 MG CAP PO SCH ×3 (08:59→20:25)
[2022-07-27] MEDS ORDERED: FLU VACC QS2022-23(65YR UP)/PF 240 MCG/0.7 ML SYRINGE IM ONE (09:00)
[2022-07-27] MEDS: Losartan 25 MG TAB PO SCH ×2 (09:00→20:25)
[2022-07-27] MEDS ORDERED: HumaLOG 300 UNITS/3 ML VIAL SC PRN (11:07)
[2022-07-27] MEDS ORDERED: Dextrose 50% Abboject 50 ML SYRINGE SLOW IVP PRN (11:07)
[2022-07-27] MEDS ORDERED: Dextrose 5% in Water 1,000 ML IV PRN (11:07)
[2022-07-27] MEDS: Acetaminophen 325 MG TAB PO PRN (16:07)
[2022-07-27] MEDS: Atorvastatin Calcium 20 MG TAB PO SCH (20:25)
[2022-07-27] MEDS ORDERED: Insulin Glargine 30 UNITS/0.3 ML VIAL SC SCH ×2 (21:00)
[2022-07-28] MEDS: HYDROcodone/Acetaminophen 10/325 mg Tablet PO PRN ×3 (01:02→09:58)
[2022-07-28] MEDS: Sodium Chloride 0.9% 1,000 ML IV SCH (02:45)
[2022-07-28] MEDS: Acetaminophen 325 MG TAB PO PRN (02:50)
[2022-07-28 08:01] VITALS: BP 102/63; TEMP 97.6
[2022-07-28] MEDS: Gabapentin 300 MG CAP PO SCH (09:58)
[2022-07-28] MEDS: Losartan 25 MG TAB PO SCH (09:59)
== END 2022-07-28 13:05 | disposition home or self-care (01) ==
LOC: SDC 05:34 → SJJU 10:46
PROVIDERS: ADMIT Neurological Surgery; ATTEND Neurological Surgery
PROC: 01NB0ZZ Release Lumbar Nerve, Open Approach (ICD-10-PCS; principal; 2022-07-26)
DX: M48.062 Spinal stenosis, lumbar region with neurogenic claudication (principal); M48.8X6 Other specified spondylopathies, lumbar region; M46.1 Sacroiliitis, not elsewhere classified; M70.62 Trochanteric bursitis, left hip; G89.29 Other chronic pain; E11.9 Type 2 diabetes mellitus without complications; M19.90 Unspecified osteoarthritis, unspecified site; E78.5 Hyperlipidemia, unspecified; K21.9 Gastro-esophageal reflux disease without esophagitis; M47.816 Spondylosis without myelopathy or radiculopathy, lumbar region; M81.0 Age-related osteoporosis without current pathological fracture; Z79.4 Long term (current) use of insulin; Z79.899 Other long term (current) drug therapy; Z98.1 Arthrodesis status
CPT/HCPCS: 63047; 63048; 76000; 80048; 82962 ×3; 85025; 97110; 97116; C1776; J2270; 36415; 36416; J0171; J0690; J1100; J1815; J2405; J2704; J3370; J3490; S0020; S0028